=== PATIENT | male | born 1950 | race African-American/Black ===

== ENCOUNTER 2020-07-05 05:41 | Emergency (ER) | payer OTHER ==
[~2020-07-05] VITALS: Ht 177.8 cm; Wt 101.6 kg
--- NOTE | 2020-07-05 05:45 | NUR ---
COLETTE 89 FROM HOME FOR C/O L SIDED NON RADIATING CP 02/25 UPON CALLING 911 ABOUT 2 HRS PARTS COUNTERPERSON. CURRENTLY W/ NO C/O PAIN. REC'D ASA 324MG PO PARTS COUNTERPERSON. -SOB, -N/V. PT REPORTED HAD A HEAVY WORK OUT YESTERDAY AND UNSUR IF HTE PAIN IS RELATED TO THAT. PT WAS PLACED IN BED 6 . ON MONITOR,
[2020-07-05 06:10] LABS: BASOPHILS # (AUTO) 0.1 /CMM (0.0-0.2); BASOPHILS % (AUTO) 1.3 % (0.0-2.0); EOSINOPHILS % (AUTO) 0.5 % (0.0-6.0); HEMATOCRIT 38 % (39-51); HEMOGLOBIN 11.7 g/dL (13.5-17.5); LYMPHOCYTES # (AUTO) 0.9 /CMM (0.8-4.8); LYMPHOCYTES % (AUTO) 22.9 % (20.0-44.0); MEAN CORPUSCULAR HGB CONC 31 g/dl (31.0-36.0); MEAN CORPUSCULAR VOLUME 76 fL (80-96); MONOCYTES # (AUTO) 0.4 /CMM (0.1-1.30); MONOCYTES % (AUTO) 11.4 % (2.0-12.0); NEUTROPHILS # (AUTO) 2.4 /CMM (1.8-8.9); NEUTROPHILS % (AUTO) 63.9 % (43.0-81.0); PLATELET COUNT (AUTO) 181 /CMM (150-450); RED BLOOD CELL COUNT(AUTO) 4.96 MIL/uL (4.5-6.0); WHITE BLOOD COUNT (AUTO) 3.8 K/uL (4.3-11.0)
[2020-07-05] MEDS ORDERED: ASPIRIN 325 MG TABLET PO ONE (06:30)
[2020-07-05] MEDS ORDERED: NITROGLYCERIN PACKET 1 GM PACKET TD ONE (06:30)
[2020-07-05] MEDS ORDERED: NITROGLYCERIN PACKET 1 GM PACKET ONE (06:34)
[2020-07-05 06:35] LABS: ALANINE AMINOTRANSFERASE 19 U/L (12-78); ALBUMIN 3.8 g/dL (3.4-5.0); ALKALINE PHOSPHATASE 50 U/L (46-116); ASPARTATE AMINOTRANSFERASE 20 U/L (15-37); B-TYPE NATRIURETIC PEPTIDE 801 PG/ML (0-125); BILIRUBIN,DIRECT 0.1 mg/dL (0.0-0.2); BILIRUBIN,TOTAL 0.4 mg/dL (0.2-1.0); CALCIUM, SERUM 8.9 mg/dL (8.5-10.1); CARBON DIOXIDE 24 mmol/L (21-32); CHLORIDE 101 mmol/L (98-107); GLUCOSE 114 mg/dL (74-106); POTASSIUM 3.2 mmol/L (3.5-5.1); SODIUM SERUM 135 mmol/L (136-145); TOTAL PROTEIN, SERUM 7.8 g/dL (6.4-8.2); UREA NITROGEN, BLOOD 9 mg/dL (7-18)
[2020-07-05] MEDS ORDERED: ASPIRIN 325 MG TABLET ONE (06:35)
--- NOTE | 2020-07-05 06:48 | NUR ---
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
[2020-07-05] MEDS ORDERED: METOPROLOL TARTRATE 50 MG TABLET PO ONE (08:00)
[2020-07-05 09:00] LABS: IRON, SERUM 61 ug/dl (50-175); TOTAL IRON BINDING CAPACITY 541 ug/dl (250-450)
[2020-07-05] MEDS ORDERED: IV NS 0.9% 250 ML IV ONE (09:06)
[2020-07-05] MEDS ORDERED: IOHEXOL-350 100 ML VIAL IV ONE (09:06)
[2020-07-05] MEDS ORDERED: CT SWABBABLE VALVE TRANS SET 1 EA INFUS.SET MC ONE (09:06)
--- NOTE | 2020-07-05 09:17 | NUR ---
Wheeled patient via [facility] for CTA.
[2020-07-05] MEDS ORDERED: METOPROLOL TARTRATE INJ 5 MG/5 ML AMPUL ONE ×3 (09:28→09:45)
[2020-07-05] MEDS ORDERED: NITROGLYCERIN 0.4 MG/TAB BOTTLE SL ONE (09:30)
[2020-07-05] MEDS: METOPROLOL TARTRATE INJ 5 MG/5 ML AMPUL IVP PRN ×3 (09:31→09:41)
--- NOTE | 2020-07-05 09:46 | NUR ---
RN NOTES; POST CTA: Patient able to tolerate the procedure. No discomfort at this time. Patient sent back to his room in stable condition. Report given to ER nurse.
--- NOTE | 2020-07-05 09:50 | NUR ---
patient came back from CT
[2020-07-05 10:24] LABS: CHOLESTEROL 143 mg/dL (<200); FERRITIN 224 ng/mL (8-388); HDL CHOLESTEROL 48 mg/dL (40-60); LDL 82 mg/dL (0-99); THYROID STIMULATING HORMONE < 0.007 uIU/mL (0.358-3.74); TRIGLYCERIDES 36 mg/dL (30-150)
--- NOTE | 2020-07-05 10:55 | NUR ---
cancelled Lopressor 50 mg tab and nitro as ordered by Dr. Reed
[2020-07-05] MEDS ORDERED: ALBUTEROL FS 2.5 MG/3 ML VIAL.NEB NEB ONE (11:00)
[2020-07-05] MEDS ORDERED: IPRATROPIUM NEB FS 0.5 MG/2.5 ML AMPUL.NEB NEB ONE (11:00)
[2020-07-05] MEDS ORDERED: IPRATROPIUM NEB FS 0.5 MG/2.5 ML AMPUL.NEB ONE (11:14)
[2020-07-05] MEDS ORDERED: ALBUTEROL FS 2.5 MG/3 ML VIAL.NEB ONE (11:14)
[2020-07-05 11:50] VITALS: BP 135/67
--- NOTE | 2020-07-05 11:51 | NUR ---
Patient discharged to home in stable condition. Written and verbal after care instructions given. Patient verbalizes understanding of instruction.IV removed. Catheter intact and site benign. Pressure and 4x4 applied to site. No bleeding noted.
[2020-07-05] MEDS ORDERED: METOPROLOL TARTRATE 50 MG TABLET PO SCH (12:00)
== END 2020-07-05 11:50 | disposition home or self-care (01) ==
LOC: ER 05:42
DX: R07.9 Chest pain, unspecified (principal); K44.9 Diaphragmatic hernia without obstruction or gangrene; J45.909 Unspecified asthma, uncomplicated; I10 Essential (primary) hypertension; C84.09 Mycosis fungoides, extranodal and solid organ sites; I77.819 Aortic ectasia, unspecified site; I25.10 Atherosclerotic heart disease of native coronary artery without angina pectoris; Z20.828 Contact with and (suspected) exposure to other viral communicable diseases; Z82.49 Family history of ischemic heart disease and other diseases of the circulatory system; Z92.21 Personal history of antineoplastic chemotherapy
CPT/HCPCS: 36415; 71045; 75574; 80048; 80061; 80076; 82728; 83540; 83880; 84439; 84443; 84484 ×2; 85025; 85730; 87426; 93005 ×2; 93307; 94640; 96374; 99285; C9803; J3490 ×3; J7050; Q9967